=== PATIENT | male | born 1935 | race Caucasian/White ===

== ENCOUNTER 2016-12-22 11:21 | Emergency (ER) | payer MEDICARE ==
--- NOTE | 2016-12-22 12:03 | ED Physician Documentation ---
Skin Rash - HISTORIAN Historian: patient - HPI Stated Complaint: rash Chief Complaint: Skin Rash Additional Information: two different types of rash came up about the same time. Tricep area left arm, scaly, indurated, burning/itching. Circular enlarging raised border multiple lesions around waste. look bad but no sensation, mild itch. Onset: days ago Timing: still present Duration: worse Location: trunk, LUE Quality: itchy, burning Identified Cause?: No Where: home Context: Medication Exposure: none Context: Food Exposure: none Further Comments: no - ROS CONST: none CVS/RESP: none EYES/ENT: none GI/: none MS/SKIN/LYMPH: none NEURO/PSYCH: none - PAST HX Past History: none Other History: none Surgeries/Procedures: Yes Immunizations: UTD Allergies/Adverse Reactions: Allergies Allergy/AdvReac Type Severity Reaction Status Date / Time No Known Allergies Allergy Verified 12/22/16 11:34 Home Medications: Ambulatory Orders Medication Instructions Recorded Unobtainable [Unobtainable] 12/22/16 - SOCIAL HX Smoking History: denies: non-smoker Alcohol Use: none Drug Use: none - FAMILY HX Family History: none - VITAL SIGNS Vital Signs: Vital Signs Temp Pulse Resp BP Pulse Ox 98.1 F 101 H 16 110/75 94 12/22/16 11:25 12/22/16 11:25 12/22/16 11:25 12/22/16 11:25 12/22/16 11:25 - REVIEWED ASSESSMENTS Nursing Assessment Reviewed: Yes Vitals Reviewed: Yes Skin Rash Physical Exam - EXAM General Appearance: no acute distress, alert Skin: warm,dry, other (see description above) Location: trunk, extremities Character: patchy Symptoms: induration, scaling, well defined border Extremities: non-tender EENT: eyes nml inspection, pharynx nml Respiratory: no resp distress Abdomen: non-tender Neuro/Psych: oriented x3, mood/affect nml Discharge Clincal Impression: Ringworm of body, Tinea corporis, Varicella zoster Referrals: Ayden Samayoa MD [Primary Care Provider] - 2 Days Home Medications: Ambulatory Orders Unobtainable [Unobtainable] 12/22/16 Condition: Stable Disposition: 01 HOME, SELF-CARE Decision to Admit: NO Date of Decison to Admit: 12/22/16 Decision Time: 12:07
[2016-12-22 12:14] VITALS: BP 110/68
== END 2016-12-22 12:13 | disposition home or self-care (01) ==
LOC: ED 11:21
DX: B35.4 Tinea corporis (principal); B01.9 Varicella without complication
CPT/HCPCS: 99283